=== PATIENT | male | born 1945 | race Caucasian/White ===

== ENCOUNTER 2019-02-18 11:23 | Emergency (ER) | payer OTHER ==
[2019-02-18] MEDS ORDERED: EPINEPHrine/PF 1 MG/1 ML (1:1,000) AMPULE ONE (11:38)
[2019-02-18] MEDS ORDERED: CALCIUM CHLORIDE 1 GM/10 ML *DISP.SYRIN ONE ×2 (11:39→11:45)
[2019-02-18] MEDS ORDERED: SODIUM BICARBONATE 8.4% 50 MEQ/50 ML VIAL ONE ×2 (11:46→11:47)
[2019-02-18 12:05] LABS: BASO % 0.9 % (0-2.0); EOS % 0.9 % (0-4.5); HEMATOCRIT 37.5 % (35.4-49); HEMOGLOBIN 10.4 GM/dL (11.7-16.9); LYMPH % 20.2 % (8-40); MCH 28.6 pg (25.7-33.7); MCHC 27.8 g/dl (32.0-35.9); MEAN CELL VOLUME 102.9 fl (80-96); MEAN PLT VOLUME 8.7 fl (7.5-11.1); MONO % 4.9 % (3.8-10.2); NEUT % 73.1 % (42.8-82.8); PLATELET COUNT 155 K/MM3 (134-434); RBC 3.65 M/mm3 (4.00-5.60); RDW 19.3 % (11.9-15.9); WHITE BLOOD COUNT 13.5 K/mm3 (4.0-10.0)
[2019-02-18 12:18] LABS: INR 1.35 (0.83-1.09)
[2019-02-18 12:31] VITALS: BP 0/0; PULSE 0; BMI 23.6
[2019-02-18 13:19] LABS: ALBUMIN 2.2 g/dl (3.4-5.0); BILIRUBIN,TOTAL 0.7 mg/dL (0.2-1); CALCIUM 13.2 mg/dL (8.5-10.1); CREATININE 1.3 mg/dL (0.55-1.3); MAGNESIUM 2.7 mg/dL (1.8-2.4); POTASSIUM 5.9 mmol/L (3.5-5.1); TOT PROT 4.5 g/dl (6.4-8.2)
--- NOTE | 2019-02-18 13:59 | PDOC ---
Documentation entered by Shayy Leo SCRIBE, acting as scribe for Kavon Trimble MD. Kavon Trimble MD: This documentation has been prepared by the Felipa tsang Adrianna, SCRIBE, under my direction and personally reviewed by me in its entirety. I confirm that the documentation accurately reflects all work, treatment, procedures, and medical decision making performed by me. History of Present Illness - General Chief Complaint: Cardiac Arrest Stated Complaint: CARDIAC ARREST Time Seen by Provider: 02/18/19 11:47 - History of Present Illness Initial Comments: The patient is a 74 Y M, with a PMH of Peripheral vascular disease (s/p femoral- anterior tibial bypass), COPD (oxygen dependent), Afib, HTN, HLD, CAD, DM, Cor pulmonale, melanoma (in remission), and right foot cellulitis, who presented to the ED in cardiac arrest. 02/18/19 12:35 Past History - Past Medical History Allergies/Adverse Reactions: Allergies Allergy/AdvReac Type Severity Reaction Status Date / Time No Known Allergies Allergy Verified 02/18/19 12:31 Home Medications: Ambulatory Orders Acetaminophen [Tylenol] 325 mg PO PRN 02/18/19 Apixaban [Eliquis] 5 mg PO BID 02/18/19 Atorvastatin Ca [Lipitor] 40 mg PO HS 02/18/19 Collagenase Clostridium Hist. [Santyl] 1 applic TP DAILY 02/18/19 Digoxin [Lanoxin -] 0.125 mg PO DAILY 02/18/19 Docusate Sodium [Colace] 100 mg PO DAILY 02/18/19 Famotidine [Pepcid] 20 mg PO BID 02/18/19 Insulin Glargine,Hum.rec.anlog [Lantus Solostar PEN (NF)] 6 units SQ DAILY 02/18 Insulin Lispro [Humalog] 2 unit SQ TID 02/18/19 - Suicide/Smoking/Psychosocial Hx Smoking History: Unknown if ever smoked Hx Alcohol Use: No Drug/Substance Use Hx: No *Physical Exam - Vital Signs Last Vital Signs Temp Pulse Resp BP Pulse Ox 0 L 0 L 0/0 L 02/18/19 12:27 02/18/19 12:27 02/18/19 12:27 - Physical Exam Comments: 02/18/19 16:12 ROS: Unable to obtain EXAMINATION CONSTITUTIONAL: Patient is unresponsive, CPR in progress, intubated HEAD: Normocephalic; 2.5-3 cm stellate laceration to the right parietal area without bony crepitus or step-offs EYES: Pupils are fixed and dilated bilaterally ENMT: External appears normal; ET tube in place (24cm at the lip) NECK: Supple CARD: Patient asystolic with no palpable pulse; carotid and femoral pulses palpable with CPR only RESP: Decreased breath sounds bilaterally (right greater than left); pink frothy secretions in the ET tube noted; well-healed sternotomy scar is noted ABD: Soft, non-distended; non-tender; no palpable organomegaly, no palpable hernias PELVIS: Ecchymosis and hematomas to the groin area bilaterally EXT: Left lower extremity reveals jeremy along the medial aspect related to the previous family pops with no evidence of active bleeding or purulent discharge. Right lower extremity is erythematous with a dressing in place SKIN: No petechia NEURO: Unresponsive, GCS-3 ED Treatment Course - LABORATORY CBC & Chemistry Diagram: 02/18/19 11:02 02/18/19 11:02 - ADDITIONAL ORDERS Additional order review: Laboratory Results 02/18/19 02/18/19 11:02 11:02 PT with INR 16.00 H INR 1.35 H Blood Type Cancelled Antibody Screen Cancelled 02/18/19 11:02 RBC 3.65 L MCV 102.9 H MCHC 27.8 L RDW 19.3 H MPV 8.7 Neutrophils % 73.1 Lymphocytes % 20.2 Monocytes % 4.9 Eosinophils % 0.9 Basophils % 0.9 - RADIOLOGY Radiology Studies Ordered: Category Date Time Status CHEST X-RAY PORTABLE* [RAD] Stat Radiology 02/18/19 11:48 Ordered - Consult/PCP Time Called: 12:15 (paged Dr. Aguillon call service, pending call back) Case discussed with personal care physician: Dwain Aguillon (13:00pm- spoke with Dr. Aguillon, he agreed to sign certificate) Medical Decision Making - Medical Decision Making 02/18/19 16:15 Patient is a 74-year-old male with multiple comorbidities, undergoing short- term rehabilitation at [facility] when he was noted to have collapsed to go to the bathroom. EMS was activated and CPR was immediately initiated. Patient was asystolic for a period of 45 minutes as per EMS after receiving numerous doses of epinephrine and bicarbonate prior to arrival in the ER. Patient was also intubated. Upon arrival, patient was noted to be unresponsive and asystolic. CPR was resumed and additional doses of sodium bicarbonate and calcium chloride were administered. Additional IV epinephrine was also administered. Shortly thereafter, patient developed an organized rhythm which was consistent with junctional tachycardia with an RBBB type QRS pattern. A palpable pulse was also noted. Bedside echocardiogram revealed cardiac activity with diffuse hypokinesis. IV epinephrine drip was initiated due to severe hypotension. After several minutes, patient's condition deteriorated he became asystolic requiring resumption of CPR and additional doses of epinephrine, sodium bicarbonate and calcium chloride were administered. Patient's rhythm developed into initially V. tach followed by V. fib which was defibrillated at 200 J on several occasions. CPR continued throughout. Patient was also noted to have developed pink frothy discharge from the ET tube likely related to pulmonary hemorrhages. After the last of her ablation, patient's rhythm was noted to be asystole and no further return of spontaneous circulation was achieved. Given the length of the overall cardiac arrest and futility of additional efforts, patient was pronounced at [address] Powell, patient's PMD was notified. currency examiner was also notified and released the case: CO # [id number]. *DC/Admit/Observation/Transfer Diagnosis at time of Disposition: Cardiac arrest - Discharge Dispostion Disposition: Condition at time of disposition: - Referrals Referrals: Maile Odell MD [Non Staff, Medical] - - Patient Instructions - Post Discharge Activity
[2019-02-18 14:26] LABS: ANISOCYTOSIS 1+; MACROCYTOSIS 1+; OVALOCYTE 2+; PLATELET ESTIMATE NORMAL
== END 2019-02-18 17:00 | disposition expired ==
LOC: JER 11:23 → SUPCPDRO 11:23 → JER 16:59
DX: I46.9 Cardiac arrest, cause unspecified (principal); I73.9 Peripheral vascular disease, unspecified; J44.9 Chronic obstructive pulmonary disease, unspecified; I48.91 Unspecified atrial fibrillation; I10 Essential (primary) hypertension; E78.5 Hyperlipidemia, unspecified; E11.9 Type 2 diabetes mellitus without complications; I25.10 Atherosclerotic heart disease of native coronary artery without angina pectoris; Z79.01 Long term (current) use of anticoagulants; Z85.820 Personal history of malignant melanoma of skin
CPT/HCPCS: 36415; 80053; 82550; 83735; 84484; 85025; 85610; 99284-25